=== PATIENT | female | born 1945 | race Caucasian/White ===

== ENCOUNTER → 2023-06-07 09:07 | Outpatient (REF) | payer MEDICARE, BC, SELFPAY | LOC: HWWDC 09:07 | PROVIDERS: ATTENDING PHYSICIAN Family Medicine Adult Medicine | DX: Z12.31 Encounter for screening mammogram for malignant neoplasm of breast (principal) | CPT/HCPCS: 77063; 77067 ==

== ENCOUNTER → 2024-02-21 06:36 | Outpatient (REF) | payer MEDICARE, BC, SELFPAY | LOC: RAD 06:36 | PROVIDERS: ATTENDING PHYSICIAN Podiatrist Foot & Ankle Surgery; FAMILY PHYSICIAN Family Medicine Adult Medicine | DX: L97.512 Non-pressure chronic ulcer of other part of right foot with fat layer exposed (principal); I73.89 Other specified peripheral vascular diseases | CPT/HCPCS: 93922; 93925 ==

== ENCOUNTER → 2024-06-09 10:17 | Outpatient (REF) | payer MEDICARE, BC, SELFPAY | LOC: HWWDC 10:17 | PROVIDERS: ATTENDING PHYSICIAN Obstetrics & Gynecology; FAMILY PHYSICIAN Family Medicine Adult Medicine | DX: Z12.31 Encounter for screening mammogram for malignant neoplasm of breast (principal) | CPT/HCPCS: 77063; 77067 ==

== ENCOUNTER 2024-07-29 11:58 | Emergency (ER) | payer MEDICARE, BC, SELFPAY ==
[2024-07-29 12:21] VITALS: BP 161/73
[2024-07-29 12:57] LABS: % Basophils 0.5 % (0-2); % Eosinophils 1.4 % (0-6); % Immature Granulocytes 0.3 % (0-0.5); % Lymphocytes 25.3 % (20.5-51.1); % Monocytes 6.3 % (1.7-9.3); % Neutrophils 66.2 % (42.2-75.2); Absolute Eosinophils 0.1 10^3/uL (0-0.7); Absolute Lymphocytes 1.7 10^3/uL (1.2-3.4); Absolute Monocytes 0.4 10^3/uL (0.1-0.6); Absolute Neutrophils 4.4 10^3/uL (1.4-6.5); Hematocrit 43.2 % (37.0-47.0); Hemoglobin 14.4 g/dL (12.0-16.0); Mean Corp Hgb Conc. 33.3 g/dL (33.0-37.0); Mean Platelet Volume 9.6 fL (7.4-10.4); Nucleated Red Blood Cells % 0 %; Platelet Count 317 10^3/uL (130-400); Red Cell Dist. Width 13.3 % (11.5-14.5); White Blood Cell Count 6.6 10^3/uL (4.8-10.8)
[2024-07-29 13:05] LABS: ALT (SGPT) 15 U/L (0-35); AST (SGOT) 23 U/L (14-36); Albumin 4.4 g/dl (3.5-5.0); Alkaline Phosphatase 93 U/L (38-126); Blood Urea Nitrogen 16 mg/dl (7-17); Calcium 9.8 mg/dl (8.4-10.2); Carbon Dioxide 30 mmol/L (22-30); Chloride 104 mmol/L (98-107); Glucose 114 mg/dl (70-99); Potassium 4.2 mmol/L (3.5-5.1); Sodium 140 mmol/L (135-145); Total Bilirubin 0.5 mg/dl (0.2-1.3); Total Protein 6.9 g/dl (6.3-8.2); eGFR > 60.00
[2024-07-29 13:14] LABS: Troponin I < 0.012 ng/ml
--- NOTE | 2024-07-29 16:18 | ED.GENMED ---
History of Present Illness
General
Chief Complaint: Heart Rate Problem
Source: patient
Exam Limitations: none
Time Seen by Provider: 07/29/24 15:59
Nursing documentation reviewed up to this point in time: agreed with
History of Present Illness
History of Present Illness:
78 yo female w h/o HTN presents from PCP office where she was having her routine q3 months visit for BP check. HR was found to be 165 (I reviewed office visit notes) all other VSS. Pt states she had no symptoms such as palpitations, SOB, CP, light
headedness. She feels 'fine' now.
Past History
Past History
ED Past Medical History: HTN and Hypercholesterolemia
ED Past Surgical History: Orthopedic (Right hip replacement)
Social History
Tobacco: Non-smoker
Alcohol: None
Personal:
Living: with family
Review of Systems
Review of Systems
Allergies reviewed?: Yes
All Other Systems: ROS reviewed and negative except as documented in HPI and ROS
Phy Exam
Physical Exam
Physical Exam:
GENERAL: No acute distress. A&Ox3.
CONSTITUTIONAL: Afebrile.
EYES: clear, conjunctivae normal
ENMT: moist mucus membranes
RESPIRATORY: Regular respirations, nonlabored, lungs clear.
CARDIOVASCULAR: Regular rate and rhythm, no murmurs, no rubs.
GI: Soft, nontender, normal BS
MUSCULOSKELETAL: Moves with ease. Well perfused.
SKIN: Warm, dry, pink
PSYCH: Normal mood and affect. Well kept, interactive and appropriate
NEUROLOGIC: Awake, alert and oriented. No focal neurological deficits
Course
Orders/Labs/Results
Orders:
Orders
07/29/24 11:58
Electrocardiogram (*1) Urgent
Reason for Study: Atrial Fibrillation
EKG- Treatment ONCE
07/29/24 12:38
Complete Blood Count/With Diff Urgent
Comprehensive Metabolic Panel Urgent
Troponin I Urgent
Abnormal Lab Results
07/29/24
12:38
Glucose 114 H mg/dl
(70-99)
07/29/24 12:38
07/29/24 12:38
Vital Signs
Initial and Last Documented VS:
Initial Vital Signs
Temp Pulse Resp BP Pulse Ox
98.2 F 90 16 161/73 98
07/29/24 12:21 07/29/24 12:21 07/29/24 12:21 07/29/24 12:21 07/29/24 12:21
Last Documented Vital Signs
Temp Pulse Resp BP Pulse Ox
98.2 F 90 16 161/73 98
07/29/24 12:21 07/29/24 12:21 07/29/24 12:21 07/29/24 12:21 07/29/24 12:21
MDM/Problems Addressed
Differential Diagnosis Includes:
SVT episode
MDM/Problems Addressed:
78 yo female w h/o HTN presents from PCP office where she was having her routine q3 months visit for BP check. HR was found to be 165 (I reviewed office visit notes) all other VSS. Pt states she had no symptoms such as palpitations, SOB, CP, light
headedness. She feels 'fine' now.
EKG NSR
CBC, CMP normal
Troponin normal
Patient is feeling well, totally asymptomatic, stable for discharge.
HR 80's sinus, entire time on monitor
Plan: Follow-up with cardiology, most likely will need a Holter monitor.
*Critical Care Note
Total Time (30-74mins, 75-104mins- exclusive of procedures): Not Applicable
ED Attending Note
-
Portions of this chart may have been created with voice recognition software.� Occasional wrong word or��sound alike� substitutions may have occurred due to the inherent limitations of voice recognition software.
Discharge Plan
Departure
Patient Disposition: Home (Routine Discharge)
Date of Disposition: 07/29/24
Time of Disposition: 16:18
Patient with high blood pressure during this ER visit?: No
Condition: Good
Discharge Problem:
Tachycardia, unspecified
Referrals:
José Miguel Daly MD [Active] - Next open appointment
Activity Restrictions/Additional Instructions:
As we discussed, your EKG and heart rate have been normal.
Your lab work is normal.
Return here immediately for palpitations, lightheadedness, chest pain, shortness of breath
Call the cardiology office tomorrow and inform of today's visit. You should have a Holter monitor evaluation.
Interventions
Interventions:
*Risk Screen - Suicide Last Done: 07/29/24 12:21
*General Assessment Last Done: 07/29/24 16:36
*Neglect/Abuse Screening Last Done: 07/29/24 12:21
*ED- Fall Risk Assessment Last Done: 07/29/24 16:37
*ED COVID-19 Vaccine History Last Done: 07/29/24 16:36
*Nursing Disposition Last Done: 07/29/24 16:36
ED- Cardiac Assessment Last Done: 07/29/24 16:08
ED- Pulmonary Assessment Last Done: 07/29/24 16:08
Discharge Date and Time
Discharge Date/Time: 07/29/24 16:49
Print Language: [id number]
== END 2024-07-29 16:49 | disposition home or self-care (01) ==
LOC: EMR 11:58
PROVIDERS: Emergency Medicine; EMERGENCY PHYSICIAN Student in an Organized Health Care Education/Training Program; FAMILY PHYSICIAN Family Medicine Adult Medicine
DX: R00.0 Tachycardia, unspecified (principal); I10 Essential (primary) hypertension; E78.00 Pure hypercholesterolemia, unspecified; I48.91 Unspecified atrial fibrillation
CPT/HCPCS: 99283; 80053; 84484; 85025; 93005

== ENCOUNTER → 2024-08-27 12:47 | Outpatient (REF) | payer MEDICARE, BC, SELFPAY | LOC: RCS 12:47 | PROVIDERS: ATTENDING PHYSICIAN Internal Medicine Cardiovascular Disease; FAMILY PHYSICIAN Family Medicine Adult Medicine | DX: I48.0 Paroxysmal atrial fibrillation (principal) | CPT/HCPCS: 93306 ==

== ENCOUNTER → 2025-02-24 10:44 | Outpatient (REF) | payer MEDICARE, BC, SELFPAY ==
[2025-02-24 12:01] LABS: Hematocrit 41.7 % (37.0-47.0); Hemoglobin 13.7 g/dL (12.0-16.0); Mean Corp Hgb Conc. 32.9 g/dL (33.0-37.0); Mean Corpuscular Volume 91.0 fL (81.0-99.0); Nucleated Red Blood Cells % 0 %; Platelet Count 322 10^3/uL (130-400); Red Cell Dist. Width 13.7 % (11.5-14.5)
[2025-02-24 12:26] LABS: ALT (SGPT) 16 U/L (0-35); AST (SGOT) 23 U/L (14-36); Albumin 4.4 g/dl (3.5-5.0); Alkaline Phosphatase 94 U/L (38-126); Blood Urea Nitrogen 17 mg/dl (7-17); Calcium 9.7 mg/dl (8.4-10.2); Carbon Dioxide 27 mmol/L (22-30); Chloride 102 mmol/L (98-107); Glucose 88 mg/dl (70-99); Potassium 4.7 mmol/L (3.5-5.1); Sodium 137 mmol/L (135-145); Total Protein 7.2 g/dl (6.3-8.2); eGFR > 60.00
== END ==
LOC: SDSPAT 10:44
PROVIDERS: ATTENDING PHYSICIAN Internal Medicine Cardiovascular Disease; FAMILY PHYSICIAN Family Medicine Adult Medicine; OTHER PHYSICIAN Internal Medicine Cardiovascular Disease
DX: I48.0 Paroxysmal atrial fibrillation (principal)
CPT/HCPCS: 36415; 80053; 85025; 86850; 86900; 86901; 93005